=== PATIENT | male | born 1975 | race Caucasian/White ===

== ENCOUNTER 2022-09-03 17:38 | Inpatient (IN) | payer MEDICAID ==
[~2022-09-03] VITALS: Ht 175.3 cm; Wt 86.2 kg
[2022-09-03 19:01] LABS: HEMATOCRIT. 21.2 % (42.0-52.0); MEAN CORPUSCULAR HEMOGLOBIN 30.8 pg (28.0-32.0); MEAN CORPUSCULAR VOLUME 95.1 fL (80.0-94.0); MEAN PLATELET VOLUME 7.7 fl (7.4-10.4); PLATELET 248 x1000/uL (130-400); RED BLOOD CELL COUNT 2.23 mill/uL (4.7-6.1); RED CELL DISTRIBUTION WIDTH 15.7 % (11.6-14.6)
[2022-09-03 19:07] LABS: HEMOGLOBIN. 6.8 g/dL (14.0-18.0)
[2022-09-03 19:10] LABS: CHLORIDE 108 mEq/L (98-107)
[2022-09-03 19:26] LABS: ETHANOL BLOOD < 10 mg/dL
[2022-09-03] MEDS ORDERED: LACTULOSE 20G/30ML UDC PO ONE (19:30)
[2022-09-03 21:10] LABS: BG BASE EXCESS -25.6 mmol/L (-2.0-2.0); BG CARBOXYHEMOGLOBIN 0.3 % (0.5-1.5); BG DEOXYHEMOGLOBIN 2.5 % (0.0-5.0); BG FRACTION INSPIRED OXYGEN 21; BG HCO3 ACT 3.7 mmol/L (22.0-26.0); BG METHEMOGLOBIN 0.9 % (0.0-1.5); BG OXYGEN SATURATION 97.5 % (92.0-98.5); BG OXYHEMOGLOBIN 96.3 % (94.0-97.0); BG PCO2 15.7 mmHg (35.0-45.0); BG PH 6.994 (7.350-7.450); BG PO2 137.4 mmHg (75.0-100.0); BG SAMPLE SITE RIGHT RADIAL; BG TOTAL HEMOGLOBIN 7.5 g/dL (12.0-18.0); BG VENT MODE ROOM AIR
[2022-09-03] MEDS ORDERED: SODIUM BICARBONATE 8.4% 1 MEQ/ML 50ML SYR IV NR (21:15)
[2022-09-03 21:28] LABS: CLARITY URINE CLOUDY (CLEAR); COLOR URINE YELLOW (YELLOW); SPECIFIC GRAVITY URINE 1.015 (1.005-1.030)
[2022-09-03 21:29] LABS: KETONES URINE NEGATIVE (NEGATIVE); NITRITE URINE NEGATIVE (NEGATIVE); OCCULT BLOOD URINE 1+ (NEGATIVE); PROTEIN URINE 3+ (NEGATIVE); UROBILINOGEN URINE 0.2 E.U./dL (0.2-1.0)
[2022-09-03 21:30] LABS: LEUKOCYTE ESTERASE URINE TRACE (NEGATIVE)
[2022-09-03] MEDS ORDERED: LORAZEPAM 2MG/ML CPJ IV ONE (22:15)
[2022-09-03] MEDS ORDERED: MANNITOL 12.5G (25%) VIAL 50ML IV NR (22:30)
[2022-09-04] VITALS (72 sets, daily range): BP systolic 125–158; BP diastolic 56–98
[2022-09-04 03:07] LABS: NUCLEATED RED BLOOD CELLS 1 /100 WBC
[2022-09-04 03:08] LABS: PLATELET ESTIMATE NORMAL
[2022-09-04] MEDS ORDERED: ONDANSETRON HCL 4MG/2ML INJ IV PRN (03:15)
[2022-09-04 07:28] LABS: HEMATOCRIT. 22.8 % (42.0-52.0); HEMOGLOBIN. 7.4 g/dL (14.0-18.0); MEAN CORPUSCULAR HEMOGLOBIN 30.6 pg (28.0-32.0); MEAN CORPUSCULAR VOLUME 93.6 fL (80.0-94.0); MEAN PLATELET VOLUME 7.3 fl (7.4-10.4); PLATELET 228 x1000/uL (130-400); RED BLOOD CELL COUNT 2.43 mill/uL (4.7-6.1); RED CELL DISTRIBUTION WIDTH 16.3 % (11.6-14.6)
[2022-09-04 07:43] LABS: INR 1.6; PROTHROMBIN TIME 16.6 sec (9.6-11.0)
[2022-09-04] MEDS ORDERED: MANNITOL 12.5G (25%) VIAL 50ML IV NR (09:00)
[2022-09-04 09:36] LABS: PHOSPHORUS 12.7 mg/dL (2.5-4.9)
[2022-09-04] MEDS ORDERED: METOPROLOL SUCCINATE 50MG ER TABLET PO SCH (10:00)
[2022-09-04] MEDS ORDERED: METOPROLOL TARTRATE 50MG TABLET PO SCH (10:27)
[2022-09-04] MEDS ORDERED: DILTIAZEM HCL 5MG/ML 5ML VIAL IV NR (10:45)
[2022-09-04 11:03] LABS: BG BASE EXCESS -13.4 mmol/L (-2.0-2.0); BG CARBOXYHEMOGLOBIN 0.3 % (0.5-1.5); BG DEOXYHEMOGLOBIN 4.3 % (0.0-5.0); BG FRACTION INSPIRED OXYGEN 21; BG HCO3 ACT 11.8 mmol/L (22.0-26.0); BG METHEMOGLOBIN 0.5 % (0.0-1.5); BG OXYGEN SATURATION 95.7 % (92.0-98.5); BG OXYHEMOGLOBIN 94.9 % (94.0-97.0); BG PCO2 25.1 mmHg (35.0-45.0); BG PO2 88.9 mmHg (75.0-100.0); BG SAMPLE SITE RIGHT RADIAL; BG TOTAL HEMOGLOBIN 7.6 g/dL (12.0-18.0); BG VENT MODE ROOM AIR
[2022-09-04] MEDS ORDERED: SODIUM BICARBONATE 8.4% 1 MEQ/ML 50ML SYR IV NR ×2 (11:15→12:15)
[2022-09-04 11:39] LABS: MEAN CORPUSCULAR VOLUME 88.4 fL (80.0-94.0); MEAN PLATELET VOLUME 7.3 fl (7.4-10.4); PLATELET 211 x1000/uL (130-400); RED BLOOD CELL COUNT 2.29 mill/uL (4.7-6.1); RED CELL DISTRIBUTION WIDTH 15.8 % (11.6-14.6)
[2022-09-04 11:44] LABS: HEMATOCRIT. 20.2 % (42.0-52.0); HEMOGLOBIN. 6.9 g/dL (14.0-18.0)
[2022-09-04] MEDS ORDERED: DILTIAZEM HCL 30MG TABLET PO SCH (12:00)
[2022-09-04] MEDS: PROPOFOL 10MG/ML 100ML 100 ML IV PRN (12:30)
[2022-09-04 13:30] LABS: BG BASE EXCESS -11.6 mmol/L (-2.0-2.0); BG CARBOXYHEMOGLOBIN 0.3 % (0.5-1.5); BG DEOXYHEMOGLOBIN 0.7 % (0.0-5.0); BG FRACTION INSPIRED OXYGEN 100; BG HCO3 ACT 13.9 mmol/L (22.0-26.0); BG METHEMOGLOBIN 0.4 % (0.0-1.5); BG OXYGEN SATURATION 99.3 % (92.0-98.5); BG OXYHEMOGLOBIN 98.6 % (94.0-97.0); BG PCO2 29.5 mmHg (35.0-45.0); BG PH 7.291 (7.350-7.450); BG PO2 516.9 mmHg (75.0-100.0); BG SAMPLE SITE RIGHT RADIAL; BG TOTAL HEMOGLOBIN 7.5 g/dL (12.0-18.0); BG TOTAL RESPIRATORY RATE 20 b/min; BG VENT MODE VENT - AC
[2022-09-04 13:55] LABS: PLATELET ESTIMATE NORMAL
[2022-09-04] MEDS: LANTHANUM CARBONATE 500MG CHEW TABLET PO SCH ×2 (14:03→16:11)
[2022-09-04] MEDS: CITRIC ACID/SODIUM CITRATE SOLN 30ML UDC PO SCH ×2 (14:03→16:11)
[2022-09-04] MEDS: LACTULOSE 20G/30ML UDC PO SCH ×2 (14:03→21:06)
[2022-09-04] MEDS: DILTIAZEM HCL 5MG/ML 5ML VIAL IV SCH ×3 (14:05→20:52)
[2022-09-04] MEDS ORDERED: SODIUM BICARBONATE 8.4% 1 MEQ/ML 50ML SYR IV ONE (14:15)
[2022-09-04] MEDS ORDERED: POTASSIUM CHLORIDE 20MEQ/PACKET PO NR (20:00)
[2022-09-04] MEDS: EPOETIN ALFA-EPBX 4,000 UNIT/ML VIAL SUBCUT SCH (20:52)
[2022-09-04] MEDS: FAMOTIDINE 20MG TABLET PO SCH (20:52)
[2022-09-04 21:04] LABS: HEMATOCRIT 23.5 % (42.0-52.0); HEMOGLOBIN 8.1 g/dL (14.0-18.0)
[2022-09-04 21:15] LABS: INR 1.8; PROTHROMBIN TIME 18.2 sec (9.6-11.0)
[2022-09-05] VITALS (88 sets, daily range): BP systolic 120–165; BP diastolic 60–89
[2022-09-05] MEDS: PROPOFOL 10MG/ML 100ML 100 ML IV PRN ×3 (02:15→16:06)
[2022-09-05] MEDS: DILTIAZEM HCL 5MG/ML 5ML VIAL IV SCH ×6 (04:00→20:00)
[2022-09-05] MEDS: LACTULOSE 20G/30ML UDC PO SCH ×3 (05:31→22:24)
[2022-09-05 07:06] LABS: HEMOGLOBIN. 8.2 g/dL (14.0-18.0); MEAN CORPUSCULAR HEMOGLOBIN 30.9 pg (28.0-32.0); MEAN CORPUSCULAR VOLUME 89.8 fL (80.0-94.0); MEAN PLATELET VOLUME 7.5 fl (7.4-10.4); PLATELET 186 x1000/uL (130-400); RED BLOOD CELL COUNT 2.67 mill/uL (4.7-6.1); RED CELL DISTRIBUTION WIDTH 15.9 % (11.6-14.6)
[2022-09-05] MEDS ORDERED: MANNITOL 12.5G (25%) VIAL 50ML IV NR (08:00)
[2022-09-05] MEDS ORDERED: CEFEPIME HCL 1000MG/VIAL INJ IM SCH (09:00)
[2022-09-05] MEDS ORDERED: CEFEPIME 500 MG in DEXTROSE 5% WATER 50 ML IV SCH (09:00)
[2022-09-05] MEDS: LANTHANUM CARBONATE 500MG CHEW TABLET PO SCH ×3 (09:57→16:34)
[2022-09-05] MEDS: CITRIC ACID/SODIUM CITRATE SOLN 30ML UDC PO SCH ×3 (09:57→16:34)
[2022-09-05 10:41] LABS: BG BASE EXCESS -1.2 mmol/L (-2.0-2.0); BG CARBOXYHEMOGLOBIN 0.1 % (0.5-1.5); BG DEOXYHEMOGLOBIN 1.3 % (0.0-5.0); BG FRACTION INSPIRED OXYGEN 50; BG HCO3 ACT 21.7 mmol/L (22.0-26.0); BG METHEMOGLOBIN 0.3 % (0.0-1.5); BG OXYGEN SATURATION 98.7 % (92.0-98.5); BG OXYHEMOGLOBIN 98.3 % (94.0-97.0); BG PCO2 29.1 mmHg (35.0-45.0); BG PH 7.491 (7.350-7.450); BG PO2 196.7 mmHg (75.0-100.0); BG SAMPLE SITE RIGHT RADIAL; BG TOTAL HEMOGLOBIN 8.2 g/dL (12.0-18.0); BG TOTAL RESPIRATORY RATE 26 b/min; BG VENT MODE VENT - AC
[2022-09-05 10:49] LABS: PLATELET ESTIMATE NORMAL
[2022-09-05] MEDS: FAMOTIDINE 20MG TABLET PO SCH (22:24)
[2022-09-06] VITALS (48 sets, daily range): BP systolic 115–151; BP diastolic 58–101
[2022-09-06] MEDS: DILTIAZEM HCL 5MG/ML 5ML VIAL IV SCH ×6 (04:00→20:28)
[2022-09-06] MEDS: LACTULOSE 20G/30ML UDC PO SCH ×3 (05:12→22:14)
[2022-09-06 05:30] LABS: BASOPHILS % 0.3 % (0.0-2.0); EOSINOPHILS % 1.3 % (0.0-5.0); HEMATOCRIT. 24.2 % (42.0-52.0); HEMOGLOBIN. 8.3 g/dL (14.0-18.0); LYMPHOCYTES % 7.6 % (20.0-50.0); MEAN CORPUSCULAR HEMOGLOBIN 30.3 pg (28.0-32.0); MEAN CORPUSCULAR VOLUME 88.6 fL (80.0-94.0); MEAN PLATELET VOLUME 7.6 fl (7.4-10.4); MONOCYTES % 14.2 % (2.0-8.0); NEUTROPHILS % 76.6 % (40.0-76.0); PLATELET 181 x1000/uL (130-400); RED BLOOD CELL COUNT 2.73 mill/uL (4.7-6.1)
[2022-09-06] MEDS: PROPOFOL 10MG/ML 100ML 100 ML IV PRN ×2 (05:40→14:39)
[2022-09-06] MEDS ORDERED: POTASSIUM CHLORIDE 20MEQ TABLET SR PO NR (06:30)
[2022-09-06] MEDS ORDERED: POTASSIUM CHLORIDE INJ 40 MEQ in DEXT 5% WATER 250 ML IV ONE (07:15)
[2022-09-06] MEDS ORDERED: POTASSIUM CHLORIDE 20MEQ/PACKET PO NR (08:00)
[2022-09-06] MEDS: KCL 20MEQ/100ML X 2 FOR TOTAL KCL 40MEQ/200ML IV SCH ×2 (08:30→10:30)
[2022-09-06 09:00] LABS: BG BASE EXCESS -1.6 mmol/L (-2.0-2.0); BG CARBOXYHEMOGLOBIN 0.7 % (0.5-1.5); BG FRACTION INSPIRED OXYGEN 40; BG HCO3 ACT 21.2 mmol/L (22.0-26.0); BG METHEMOGLOBIN 0.4 % (0.0-1.5); BG OXYHEMOGLOBIN 97.9 % (94.0-97.0); BG PCO2 28.5 mmHg (35.0-45.0); BG PH 7.489 (7.350-7.450); BG PO2 148.7 mmHg (75.0-100.0); BG SAMPLE SITE RIGHT RADIAL; BG TOTAL HEMOGLOBIN 8.5 g/dL (12.0-18.0); BG VENT MODE VENT - AC
[2022-09-06] MEDS: CEFEPIME 1,000 MG in DEXTROSE 5% WATER 50 ML IV SCH (09:00)
[2022-09-06] MEDS: CITRIC ACID/SODIUM CITRATE SOLN 30ML UDC PO SCH ×3 (09:38→17:03)
[2022-09-06] MEDS: LANTHANUM CARBONATE 500MG CHEW TABLET PO SCH ×3 (09:40→17:03)
[2022-09-06] MEDS: EPOETIN ALFA-EPBX 4,000 UNIT/ML VIAL SUBCUT SCH (20:28)
[2022-09-06] MEDS: FAMOTIDINE 20MG TABLET PO SCH (20:28)
[2022-09-07] VITALS (90 sets, daily range): BP systolic 99–138; BP diastolic 69–96
[2022-09-07] MEDS ORDERED: PROPOFOL 10MG/ML 100ML 100 ML IV PRN (01:15)
[2022-09-07] MEDS: DILTIAZEM HCL 5MG/ML 5ML VIAL IV SCH ×6 (04:00→20:00)
[2022-09-07] MEDS: LACTULOSE 20G/30ML UDC PO SCH ×3 (06:34→21:34)
[2022-09-07] MEDS: LANTHANUM CARBONATE 500MG CHEW TABLET PO SCH ×3 (06:35→17:18)
[2022-09-07 06:48] LABS: HEMATOCRIT. 26.1 % (42.0-52.0); HEMOGLOBIN. 8.8 g/dL (14.0-18.0); RED BLOOD CELL COUNT 2.93 mill/uL (4.7-6.1); RED CELL DISTRIBUTION WIDTH 15.9 % (11.6-14.6)
[2022-09-07 07:13] LABS: PHOSPHORUS 4.4 mg/dL (2.5-4.9)
[2022-09-07] MEDS ORDERED: POTASSIUM CHLORIDE 20MEQ/PACKET PO NR (07:30)
[2022-09-07] MEDS: CITRIC ACID/SODIUM CITRATE SOLN 30ML UDC PO SCH ×3 (08:21→17:18)
[2022-09-07] MEDS: CEFEPIME 1,000 MG in DEXTROSE 5% WATER 50 ML IV SCH (08:23)
[2022-09-07] MEDS ORDERED: POTASSIUM CHLORIDE INJ 40 MEQ in DEXT 5% WATER 250 ML IV NR (09:00)
[2022-09-07 09:01] LABS: BG BASE EXCESS 0.6 mmol/L (-2.0-2.0); BG CARBOXYHEMOGLOBIN 1.4 % (0.5-1.5); BG DEOXYHEMOGLOBIN 1.1 % (0.0-5.0); BG FRACTION INSPIRED OXYGEN 40; BG HCO3 ACT 23.8 mmol/L (22.0-26.0); BG METHEMOGLOBIN 0.3 % (0.0-1.5); BG OXYGEN SATURATION 98.9 % (92.0-98.5); BG OXYHEMOGLOBIN 97.2 % (94.0-97.0); BG PCO2 32.5 mmHg (35.0-45.0); BG PH 7.483 (7.350-7.450); BG PO2 124.1 mmHg (75.0-100.0); BG SAMPLE SITE RIGHT RADIAL; BG TOTAL HEMOGLOBIN 8.9 g/dL (12.0-18.0); BG VENT MODE VENT - AC
[2022-09-07 09:47] LABS: NUCLEATED RED BLOOD CELLS 2 /100 WBC; PLATELET ESTIMATE NORMAL
[2022-09-07] MEDS ORDERED: FENTANYL 2500MCG/250ML PMX 250 ML IV ONE (11:00)
[2022-09-07] MEDS ORDERED: FENTANYL CITRATE 2,500 MCG in SODIUM CHLORIDE 0.9% 200 ML IV PRN (11:15)
[2022-09-07] MEDS: IPRATROPIUM/ALBUTEROL 0.5-3(2.5)MG/3ML NEB HHN SCH ×2 (12:43→20:24)
[2022-09-07] MEDS ORDERED: VANCOMYCIN 1.25GM PMX (XELLIA) 250 ML IV NR (14:00)
[2022-09-07] MEDS: FAMOTIDINE 20MG TABLET PO SCH (20:59)
[2022-09-08] VITALS (99 sets, daily range): BP systolic 116–154; BP diastolic 73–100
[2022-09-08] MEDS: IPRATROPIUM/ALBUTEROL 0.5-3(2.5)MG/3ML NEB HHN SCH ×3 (00:24→20:27)
[2022-09-08] MEDS: DILTIAZEM HCL 5MG/ML 5ML VIAL IV SCH ×6 (04:48→20:33)
[2022-09-08] MEDS: LACTULOSE 20G/30ML UDC PO SCH ×3 (05:30→22:27)
[2022-09-08 05:44] LABS: HEMATOCRIT. 27.2 % (42.0-52.0); HEMOGLOBIN. 9.1 g/dL (14.0-18.0); MEAN CORPUSCULAR HEMOGLOBIN 30.6 pg (28.0-32.0); MEAN CORPUSCULAR VOLUME 91.2 fL (80.0-94.0); MEAN PLATELET VOLUME 8.2 fl (7.4-10.4); PLATELET 173 x1000/uL (130-400); RED BLOOD CELL COUNT 2.98 mill/uL (4.7-6.1); RED CELL DISTRIBUTION WIDTH 15.9 % (11.6-14.6)
[2022-09-08] MEDS: LANTHANUM CARBONATE 500MG CHEW TABLET PO SCH ×3 (06:32→17:26)
[2022-09-08 06:38] LABS: NUCLEATED RED BLOOD CELLS 1 /100 WBC; PLATELET ESTIMATE NORMAL
[2022-09-08 06:41] LABS: PLATELET 173 x1000/uL (130-400)
[2022-09-08 06:42] LABS: MEAN PLATELET VOLUME 8.1 fl (7.4-10.4)
[2022-09-08 06:53] LABS: PHOSPHORUS 5.4 mg/dL (2.5-4.9)
[2022-09-08] MEDS: CEFEPIME 1,000 MG in DEXTROSE 5% WATER 50 ML IV SCH ×2 (07:53→11:05)
[2022-09-08] MEDS ORDERED: POTASSIUM CHLORIDE 20MEQ/PACKET PO NR (08:00)
[2022-09-08] MEDS: CITRIC ACID/SODIUM CITRATE SOLN 30ML UDC PO SCH ×2 (08:00→12:45)
[2022-09-08 11:01] LABS: BG BASE EXCESS 2.8 mmol/L (-2.0-2.0); BG CARBOXYHEMOGLOBIN 0.3 % (0.5-1.5); BG DEOXYHEMOGLOBIN 1.8 % (0.0-5.0); BG FRACTION INSPIRED OXYGEN 35; BG HCO3 ACT 25.8 mmol/L (22.0-26.0); BG METHEMOGLOBIN 0.3 % (0.0-1.5); BG OXYGEN SATURATION 98.2 % (92.0-98.5); BG OXYHEMOGLOBIN 97.6 % (94.0-97.0); BG PCO2 33.4 mmHg (35.0-45.0); BG PH 7.506 (7.350-7.450); BG PO2 131.1 mmHg (75.0-100.0); BG SAMPLE SITE RIGHT RADIAL; BG TOTAL HEMOGLOBIN 9.6 g/dL (12.0-18.0); BG VENT MODE VENT - AC
[2022-09-08 13:00] LABS: NUCLEATED RED BLOOD CELLS 1 /100 WBC
[2022-09-08 13:01] LABS: PLATELET ESTIMATE NORMAL
[2022-09-08 13:45] LABS: BG BASE EXCESS 1.3 mmol/L (-2.0-2.0); BG CARBOXYHEMOGLOBIN 0.3 % (0.5-1.5); BG DEOXYHEMOGLOBIN 2.3 % (0.0-5.0); BG FRACTION INSPIRED OXYGEN 35; BG OXYGEN SATURATION 97.7 % (92.0-98.5); BG OXYHEMOGLOBIN 97.4 % (94.0-97.0); BG PCO2 30.6 mmHg (35.0-45.0); BG PH 7.512 (7.350-7.450); BG PO2 104.2 mmHg (75.0-100.0); BG SAMPLE SITE RIGHT RADIAL; BG TOTAL HEMOGLOBIN 8.8 g/dL (12.0-18.0); BG VENT MODE VENT - CPAP
[2022-09-08] MEDS: FAMOTIDINE 20MG TABLET PO SCH (20:34)
[2022-09-08] MEDS: EPOETIN ALFA-EPBX 4,000 UNIT/ML VIAL SUBCUT SCH (20:34)
[2022-09-08] MEDS ORDERED: VANCOMYCIN 750MG PREMIX 150 ML IV NR (21:00)
[2022-09-09] VITALS (34 sets, daily range): BP systolic 124–152; BP diastolic 74–104
[2022-09-09] MEDS: DILTIAZEM HCL 5MG/ML 5ML VIAL IV SCH ×6 (00:15→21:15)
[2022-09-09] MEDS: IPRATROPIUM/ALBUTEROL 0.5-3(2.5)MG/3ML NEB HHN SCH ×4 (02:24→20:47)
[2022-09-09 04:20] LABS: HEMATOCRIT. 23.6 % (42.0-52.0); HEMOGLOBIN. 8.1 g/dL (14.0-18.0); MEAN CORPUSCULAR HEMOGLOBIN 30.7 pg (28.0-32.0); MEAN PLATELET VOLUME 8.3 fl (7.4-10.4); PLATELET 171 x1000/uL (130-400); RED BLOOD CELL COUNT 2.63 mill/uL (4.7-6.1); RED CELL DISTRIBUTION WIDTH 15.7 % (11.6-14.6)
[2022-09-09 04:36] LABS: PHOSPHORUS 4.2 mg/dL (2.5-4.9)
[2022-09-09] MEDS: LACTULOSE 20G/30ML UDC PO SCH ×3 (06:00→21:15)
[2022-09-09] MEDS: LANTHANUM CARBONATE 500MG CHEW TABLET PO SCH ×3 (06:08→18:46)
[2022-09-09] MEDS ORDERED: POTASSIUM CHLORIDE 20MEQ/PACKET PO NR (07:15)
[2022-09-09 07:35] LABS: BG BASE EXCESS 3.7 mmol/L (-2.0-2.0); BG CARBOXYHEMOGLOBIN 0.7 % (0.5-1.5); BG DEOXYHEMOGLOBIN 4.5 % (0.0-5.0); BG HCO3 ACT 27.4 mmol/L (22.0-26.0); BG OXYGEN SATURATION 95.5 % (92.0-98.5); BG OXYHEMOGLOBIN 94.8 % (94.0-97.0); BG PCO2 37.7 mmHg (35.0-45.0); BG PH 7.479 (7.350-7.450); BG PO2 73.5 mmHg (75.0-100.0); BG SAMPLE SITE RIGHT RADIAL; BG TOTAL HEMOGLOBIN 8.8 g/dL (12.0-18.0); BG VENT MODE ROOM AIR
[2022-09-09] MEDS: CEFEPIME 1,000 MG in DEXTROSE 5% WATER 50 ML IV SCH (08:26)
[2022-09-09 09:33] LABS: PLATELET ESTIMATE NORMAL
[2022-09-09] MEDS: CEFAZOLIN 1000MG PREMIX 50 ML IV SCH (21:14)
[2022-09-09] MEDS: FAMOTIDINE 20MG TABLET PO SCH (21:15)
[2022-09-10] VITALS (24 sets, daily range): BP systolic 125–154; BP diastolic 73–103
[2022-09-10] MEDS: IPRATROPIUM/ALBUTEROL 0.5-3(2.5)MG/3ML NEB HHN SCH ×4 (00:32→20:26)
[2022-09-10] MEDS: DILTIAZEM HCL 5MG/ML 5ML VIAL IV SCH ×6 (00:36→20:38)
[2022-09-10] MEDS: LACTULOSE 20G/30ML UDC PO SCH ×3 (05:06→20:38)
[2022-09-10 06:06] LABS: HEMATOCRIT. 25.9 % (42.0-52.0); HEMOGLOBIN. 8.5 g/dL (14.0-18.0); MEAN CORPUSCULAR HEMOGLOBIN 30.4 pg (28.0-32.0); MEAN CORPUSCULAR VOLUME 92.7 fL (80.0-94.0); MEAN PLATELET VOLUME 8.2 fl (7.4-10.4); PLATELET 163 x1000/uL (130-400); RED CELL DISTRIBUTION WIDTH 15.7 % (11.6-14.6)
[2022-09-10 10:26] LABS: PLATELET ESTIMATE NORMAL
[2022-09-10] MEDS: LANTHANUM CARBONATE 500MG CHEW TABLET PO SCH ×2 (13:50→17:08)
[2022-09-10] MEDS: CEFAZOLIN 1000MG PREMIX 50 ML IV SCH (18:14)
[2022-09-10] MEDS: FAMOTIDINE 20MG TABLET PO SCH (20:38)
[2022-09-11] VITALS (12 sets, daily range): BP systolic 133–156; BP diastolic 80–105
[2022-09-11] MEDS: DILTIAZEM HCL 5MG/ML 5ML VIAL IV SCH ×6 (00:24→21:07)
[2022-09-11] MEDS: IPRATROPIUM/ALBUTEROL 0.5-3(2.5)MG/3ML NEB HHN SCH ×4 (01:11→21:17)
[2022-09-11] MEDS: LACTULOSE 20G/30ML UDC PO SCH ×3 (04:20→21:07)
[2022-09-11 06:09] LABS: HEMATOCRIT. 26.6 % (42.0-52.0); HEMOGLOBIN. 8.7 g/dL (14.0-18.0); MEAN CORPUSCULAR VOLUME 92.1 fL (80.0-94.0); MEAN PLATELET VOLUME 9.1 fl (7.4-10.4); PLATELET 193 x1000/uL (130-400); RED BLOOD CELL COUNT 2.89 mill/uL (4.7-6.1); RED CELL DISTRIBUTION WIDTH 15.5 % (11.6-14.6)
[2022-09-11] MEDS: LANTHANUM CARBONATE 500MG CHEW TABLET PO SCH ×3 (09:07→18:27)
[2022-09-11 11:10] LABS: PLATELET ESTIMATE NORMAL
[2022-09-11] MEDS: CEFAZOLIN 1000MG PREMIX 50 ML IV SCH (21:05)
[2022-09-11] MEDS: FAMOTIDINE 20MG TABLET PO SCH (21:07)
[2022-09-12] VITALS (22 sets, daily range): BP systolic 123–145; BP diastolic 75–98
[2022-09-12] MEDS: DILTIAZEM HCL 5MG/ML 5ML VIAL IV SCH ×6 (00:58→21:03)
[2022-09-12] MEDS: IPRATROPIUM/ALBUTEROL 0.5-3(2.5)MG/3ML NEB HHN SCH ×4 (01:45→21:26)
[2022-09-12 05:53] LABS: HEMATOCRIT. 27.4 % (42.0-52.0); HEMOGLOBIN. 8.9 g/dL (14.0-18.0); MEAN CORPUSCULAR HEMOGLOBIN 30.3 pg (28.0-32.0); MEAN CORPUSCULAR VOLUME 92.7 fL (80.0-94.0); MEAN PLATELET VOLUME 9.1 fl (7.4-10.4); PLATELET 214 x1000/uL (130-400); RED BLOOD CELL COUNT 2.96 mill/uL (4.7-6.1); RED CELL DISTRIBUTION WIDTH 15.1 % (11.6-14.6)
[2022-09-12] MEDS: LACTULOSE 20G/30ML UDC PO SCH ×3 (06:06→21:03)
[2022-09-12] MEDS: LANTHANUM CARBONATE 500MG CHEW TABLET PO SCH ×3 (08:00→18:00)
[2022-09-12 10:52] LABS: INR 1.2
[2022-09-12 18:52] LABS: PLATELET ESTIMATE NORMAL
[2022-09-12] MEDS: CEFAZOLIN 1000MG PREMIX 50 ML IV SCH (21:02)
[2022-09-12] MEDS: FAMOTIDINE 20MG TABLET PO SCH (21:03)
[2022-09-13] VITALS: BP 155/92
[2022-09-13] MEDS: IPRATROPIUM/ALBUTEROL 0.5-3(2.5)MG/3ML NEB HHN SCH ×4 (01:07→20:30)
[2022-09-13] MEDS: DILTIAZEM HCL 5MG/ML 5ML VIAL IV SCH ×6 (01:30→20:00)
[2022-09-13 04:00] VITALS: BP 156/103
[2022-09-13] MEDS: LACTULOSE 20G/30ML UDC PO SCH ×3 (05:16→22:40)
[2022-09-13 06:58] LABS: EOSINOPHILS % 6.9 % (0.0-5.0); HEMATOCRIT. 29.6 % (42.0-52.0); HEMOGLOBIN. 9.7 g/dL (14.0-18.0); LYMPHOCYTES % 8.2 % (20.0-50.0); MEAN CORPUSCULAR HEMOGLOBIN 30.7 pg (28.0-32.0); MEAN CORPUSCULAR VOLUME 93.2 fL (80.0-94.0); MEAN PLATELET VOLUME 8.9 fl (7.4-10.4); MONOCYTES % 12.7 % (2.0-8.0); NEUTROPHILS % 71.2 % (40.0-76.0); PLATELET 271 x1000/uL (130-400); RED BLOOD CELL COUNT 3.18 mill/uL (4.7-6.1); RED CELL DISTRIBUTION WIDTH 14.9 % (11.6-14.6)
[2022-09-13 08:00] VITALS: BP 113/92
[2022-09-13] MEDS: ASPIRIN 81MG TABLET PO SCH (08:22)
[2022-09-13] MEDS: LANTHANUM CARBONATE 500MG CHEW TABLET PO SCH ×3 (08:23→18:10)
[2022-09-13 12:00] VITALS: BP 141/93
[2022-09-13 16:00] VITALS: BP 111/75
[2022-09-13 20:00] VITALS: BP 143/92
[2022-09-13] MEDS: FAMOTIDINE 20MG TABLET PO SCH (22:40)
[2022-09-13] MEDS: CEFAZOLIN 1000MG PREMIX 50 ML IV SCH (22:40)
[2022-09-14] VITALS (10 sets, daily range): BP systolic 112–162; BP diastolic 70–101
[2022-09-14] MEDS: DILTIAZEM HCL 5MG/ML 5ML VIAL IV SCH ×6 (04:00→21:34)
[2022-09-14] MEDS: LACTULOSE 20G/30ML UDC PO SCH ×3 (06:00→21:33)
[2022-09-14 08:19] LABS: BASOPHILS % 1.1 % (0.0-2.0); EOSINOPHILS % 7.2 % (0.0-5.0); HEMATOCRIT. 28.8 % (42.0-52.0); HEMOGLOBIN. 9.7 g/dL (14.0-18.0); LYMPHOCYTES % 11.7 % (20.0-50.0); MEAN CORPUSCULAR VOLUME 92.4 fL (80.0-94.0); MEAN PLATELET VOLUME 8.6 fl (7.4-10.4); MONOCYTES % 11.6 % (2.0-8.0); NEUTROPHILS % 68.4 % (40.0-76.0); PLATELET 308 x1000/uL (130-400); RED BLOOD CELL COUNT 3.12 mill/uL (4.7-6.1); RED CELL DISTRIBUTION WIDTH 14.7 % (11.6-14.6)
[2022-09-14] MEDS: IPRATROPIUM/ALBUTEROL 0.5-3(2.5)MG/3ML NEB HHN SCH ×3 (08:25→21:40)
[2022-09-14] MEDS: LANTHANUM CARBONATE 500MG CHEW TABLET PO SCH ×3 (09:35→18:27)
[2022-09-14] MEDS: ASPIRIN 81MG TABLET PO SCH (09:39)
[2022-09-14] MEDS: CEFAZOLIN 1000MG PREMIX 50 ML IV SCH (19:37)
[2022-09-14] MEDS: FAMOTIDINE 20MG TABLET PO SCH (21:33)
[2022-09-15] VITALS (8 sets, daily range): BP systolic 142–156; BP diastolic 69–101
[2022-09-15] MEDS: DILTIAZEM HCL 5MG/ML 5ML VIAL IV SCH ×7 (00:39→23:49)
[2022-09-15] MEDS: IPRATROPIUM/ALBUTEROL 0.5-3(2.5)MG/3ML NEB HHN SCH ×4 (00:47→21:40)
[2022-09-15] MEDS: LACTULOSE 20G/30ML UDC PO SCH ×3 (05:10→21:00)
[2022-09-15] MEDS: ASPIRIN 81MG TABLET PO SCH (09:08)
[2022-09-15] MEDS: LANTHANUM CARBONATE 500MG CHEW TABLET PO SCH ×3 (09:09→17:56)
[2022-09-15] MEDS: FOLIC ACID/VITAMIN B COMP W-C TABLET PO SCH (09:10)
[2022-09-15] MEDS: CARVEDILOL 3.125 MG TABLET PO SCH ×2 (13:33→20:54)
[2022-09-15] MEDS: CEFAZOLIN 1000MG PREMIX 50 ML IV SCH (18:03)
[2022-09-15] MEDS: FAMOTIDINE 20MG TABLET PO SCH (20:54)
[2022-09-16] VITALS (9 sets, daily range): BP systolic 119–156; BP diastolic 70–100
[2022-09-16] MEDS: IPRATROPIUM/ALBUTEROL 0.5-3(2.5)MG/3ML NEB HHN SCH ×3 (01:55→15:38)
[2022-09-16] MEDS: DILTIAZEM HCL 5MG/ML 5ML VIAL IV SCH ×6 (04:29→23:51)
[2022-09-16] MEDS: LACTULOSE 20G/30ML UDC PO SCH ×4 (06:00→22:00)
[2022-09-16 06:32] LABS: BASOPHILS % 1.3 % (0.0-2.0); EOSINOPHILS % 6.6 % (0.0-5.0); HEMATOCRIT. 29.1 % (42.0-52.0); HEMOGLOBIN. 9.7 g/dL (14.0-18.0); LYMPHOCYTES % 10.7 % (20.0-50.0); MEAN CORPUSCULAR HEMOGLOBIN 31.1 pg (28.0-32.0); MEAN CORPUSCULAR VOLUME 93.1 fL (80.0-94.0); MEAN PLATELET VOLUME 8.7 fl (7.4-10.4); MONOCYTES % 9.4 % (2.0-8.0); PLATELET 355 x1000/uL (130-400); RED BLOOD CELL COUNT 3.12 mill/uL (4.7-6.1); RED CELL DISTRIBUTION WIDTH 14.7 % (11.6-14.6)
[2022-09-16] MEDS: LANTHANUM CARBONATE 500MG CHEW TABLET PO SCH ×3 (08:34→17:27)
[2022-09-16] MEDS: ASPIRIN 81MG TABLET PO SCH (08:34)
[2022-09-16] MEDS: FOLIC ACID/VITAMIN B COMP W-C TABLET PO SCH (08:36)
[2022-09-16] MEDS: CARVEDILOL 3.125 MG TABLET PO SCH ×3 (09:00→20:53)
[2022-09-16] MEDS: CEFAZOLIN 1000MG PREMIX 50 ML IV SCH (17:27)
[2022-09-16] MEDS ORDERED: ACETAMINOPHEN 650MG SUPP PR PRN (20:15)
[2022-09-16] MEDS: FAMOTIDINE 20MG TABLET PO SCH ×2 (20:49→20:53)
[2022-09-17 04:13] VITALS: BP 143/94
[2022-09-17] MEDS: DILTIAZEM HCL 5MG/ML 5ML VIAL IV SCH ×5 (04:22→21:48)
[2022-09-17] MEDS: LACTULOSE 20G/30ML UDC PO SCH ×4 (06:00→21:48)
[2022-09-17 07:32] LABS: BASOPHILS % 1.7 % (0.0-2.0); HEMATOCRIT. 27.7 % (42.0-52.0); HEMOGLOBIN. 9.3 g/dL (14.0-18.0); LYMPHOCYTES % 13.8 % (20.0-50.0); MEAN CORPUSCULAR HEMOGLOBIN 31.4 pg (28.0-32.0); MEAN CORPUSCULAR VOLUME 93.7 fL (80.0-94.0); MEAN PLATELET VOLUME 8.6 fl (7.4-10.4); MONOCYTES % 10.4 % (2.0-8.0); NEUTROPHILS % 68.1 % (40.0-76.0); PLATELET 349 x1000/uL (130-400); RED BLOOD CELL COUNT 2.96 mill/uL (4.7-6.1); RED CELL DISTRIBUTION WIDTH 14.7 % (11.6-14.6)
[2022-09-17] MEDS: IPRATROPIUM/ALBUTEROL 0.5-3(2.5)MG/3ML NEB HHN SCH ×3 (07:48→20:40)
[2022-09-17 08:00] VITALS: BP 159/96
[2022-09-17] MEDS: FOLIC ACID/VITAMIN B COMP W-C TABLET PO SCH (08:57)
[2022-09-17] MEDS: ASPIRIN 81MG TABLET PO SCH (08:57)
[2022-09-17] MEDS: LANTHANUM CARBONATE 500MG CHEW TABLET PO SCH ×3 (08:58→17:13)
[2022-09-17] MEDS: CARVEDILOL 3.125 MG TABLET PO SCH (09:20)
[2022-09-17 12:00] VITALS: BP 165/101
[2022-09-17] MEDS: LOSARTAN POTASSIUM 50 MG TABLET PO SCH (12:11)
[2022-09-17 16:00] VITALS: BP 156/94
[2022-09-17 20:00] VITALS: BP 153/99
[2022-09-17] MEDS: ATORVASTATIN CALCIUM 20MG TABLET PO SCH (21:46)
[2022-09-17] MEDS: CEFAZOLIN 1000MG PREMIX 50 ML IV SCH (21:46)
[2022-09-17] MEDS: CARVEDILOL 6.25 MG TABLET PO SCH (21:47)
[2022-09-17] MEDS: FAMOTIDINE 20MG TABLET PO SCH (21:47)
[2022-09-18] VITALS: BP 142/87
[2022-09-18] MEDS: DILTIAZEM HCL 5MG/ML 5ML VIAL IV SCH ×4 (00:04→20:59)
[2022-09-18] MEDS: IPRATROPIUM/ALBUTEROL 0.5-3(2.5)MG/3ML NEB HHN SCH ×4 (01:07→21:42)
[2022-09-18 04:00] VITALS: BP 134/91
[2022-09-18 05:41] LABS: BASOPHILS % 1.3 % (0.0-2.0); EOSINOPHILS % 6.4 % (0.0-5.0); HEMATOCRIT. 29.4 % (42.0-52.0); HEMOGLOBIN. 9.9 g/dL (14.0-18.0); LYMPHOCYTES % 13.6 % (20.0-50.0); MEAN CORPUSCULAR HEMOGLOBIN 31.5 pg (28.0-32.0); MEAN CORPUSCULAR VOLUME 93.9 fL (80.0-94.0); MEAN PLATELET VOLUME 8.4 fl (7.4-10.4); MONOCYTES % 9.6 % (2.0-8.0); NEUTROPHILS % 69.1 % (40.0-76.0); PLATELET 361 x1000/uL (130-400); RED BLOOD CELL COUNT 3.13 mill/uL (4.7-6.1); RED CELL DISTRIBUTION WIDTH 14.6 % (11.6-14.6)
[2022-09-18] MEDS: LACTULOSE 20G/30ML UDC PO SCH ×3 (05:51→20:58)
[2022-09-18 08:00] VITALS: BP 160/100
[2022-09-18] MEDS: LOSARTAN POTASSIUM 50 MG TABLET PO SCH (10:00)
[2022-09-18] MEDS: ASPIRIN 81MG TABLET PO SCH (10:00)
[2022-09-18] MEDS: CARVEDILOL 6.25 MG TABLET PO SCH ×2 (10:00→20:57)
[2022-09-18] MEDS: LANTHANUM CARBONATE 500MG CHEW TABLET PO SCH ×3 (10:00→18:30)
[2022-09-18] MEDS: FOLIC ACID/VITAMIN B COMP W-C TABLET PO SCH (10:00)
[2022-09-18 12:00] VITALS: BP 148/79
[2022-09-18 16:00] VITALS: BP 137/86
[2022-09-18 20:00] VITALS: BP 112/74
[2022-09-18] MEDS: CEFAZOLIN 1000MG PREMIX 50 ML IV SCH (20:57)
[2022-09-18] MEDS: ATORVASTATIN CALCIUM 20MG TABLET PO SCH (20:57)
[2022-09-18] MEDS: FAMOTIDINE 20MG TABLET PO SCH (20:57)
[2022-09-19] VITALS (13 sets, daily range): BP systolic 93–155; BP diastolic 42–100
[2022-09-19] MEDS: DILTIAZEM HCL 5MG/ML 5ML VIAL IV SCH ×6 (00:27→20:40)
[2022-09-19] MEDS: IPRATROPIUM/ALBUTEROL 0.5-3(2.5)MG/3ML NEB HHN SCH ×3 (03:00→21:41)
[2022-09-19] MEDS: LACTULOSE 20G/30ML UDC PO SCH ×3 (06:06→20:39)
[2022-09-19 08:20] LABS: BASOPHILS % 1.5 % (0.0-2.0); EOSINOPHILS % 7.3 % (0.0-5.0); HEMATOCRIT. 29.3 % (42.0-52.0); HEMOGLOBIN. 9.7 g/dL (14.0-18.0); LYMPHOCYTES % 14.3 % (20.0-50.0); MEAN CORPUSCULAR HEMOGLOBIN 31.1 pg (28.0-32.0); MEAN CORPUSCULAR VOLUME 93.7 fL (80.0-94.0); MEAN PLATELET VOLUME 8.5 fl (7.4-10.4); MONOCYTES % 9.2 % (2.0-8.0); NEUTROPHILS % 67.7 % (40.0-76.0); PLATELET 351 x1000/uL (130-400); RED BLOOD CELL COUNT 3.13 mill/uL (4.7-6.1); RED CELL DISTRIBUTION WIDTH 14.8 % (11.6-14.6)
[2022-09-19] MEDS: LOSARTAN POTASSIUM 50 MG TABLET PO SCH (08:35)
[2022-09-19] MEDS: LANTHANUM CARBONATE 500MG CHEW TABLET PO SCH ×3 (08:35→18:38)
[2022-09-19] MEDS: FOLIC ACID/VITAMIN B COMP W-C TABLET PO SCH (08:35)
[2022-09-19] MEDS: ASPIRIN 81MG TABLET PO SCH (08:35)
[2022-09-19] MEDS: CARVEDILOL 6.25 MG TABLET PO SCH ×2 (08:37→20:39)
[2022-09-19 16:57] LABS: INR 1.5; PROTHROMBIN TIME 15.6 sec (9.6-11.0)
[2022-09-19] MEDS: CEFAZOLIN 1000MG PREMIX 50 ML IV SCH (20:38)
[2022-09-19] MEDS: ATORVASTATIN CALCIUM 20MG TABLET PO SCH (20:39)
[2022-09-19] MEDS: FAMOTIDINE 20MG TABLET PO SCH (20:39)
[2022-09-20] VITALS: BP_SYST 142; BP_SYST 97; BP_DIAS 59; BP_DIAS 89
[2022-09-20] MEDS: IPRATROPIUM/ALBUTEROL 0.5-3(2.5)MG/3ML NEB HHN SCH ×4 (01:13→21:21)
[2022-09-20] MEDS: DILTIAZEM HCL 5MG/ML 5ML VIAL IV SCH ×6 (01:18→20:43)
[2022-09-20 04:00] VITALS: BP 113/72
[2022-09-20] MEDS: LACTULOSE 20G/30ML UDC PO SCH ×3 (05:31→22:00)
[2022-09-20 08:00] VITALS: BP 153/95
[2022-09-20] MEDS: LOSARTAN POTASSIUM 50 MG TABLET PO SCH (08:54)
[2022-09-20] MEDS: LANTHANUM CARBONATE 500MG CHEW TABLET PO SCH ×3 (08:55→17:31)
[2022-09-20] MEDS: ASPIRIN 81MG TABLET PO SCH (08:55)
[2022-09-20] MEDS: CARVEDILOL 6.25 MG TABLET PO SCH (08:55)
[2022-09-20] MEDS: FOLIC ACID/VITAMIN B COMP W-C TABLET PO SCH (08:56)
[2022-09-20 12:00] VITALS: BP 111/53
[2022-09-20 16:00] VITALS: BP 137/90
[2022-09-20 20:00] VITALS: BP 124/88
[2022-09-20] MEDS: CEFAZOLIN 1000MG PREMIX 50 ML IV SCH (20:43)
[2022-09-20] MEDS: CARVEDILOL 12.5MG TABLET PO SCH (21:00)
[2022-09-20] MEDS: ATORVASTATIN CALCIUM 20MG TABLET PO SCH (21:00)
[2022-09-20] MEDS: FAMOTIDINE 20MG TABLET PO SCH (21:00)
[2022-09-21] VITALS (19 sets, daily range): BP systolic 119–144; BP diastolic 70–94
[2022-09-21] MEDS: IPRATROPIUM/ALBUTEROL 0.5-3(2.5)MG/3ML NEB HHN SCH ×4 (01:07→20:57)
[2022-09-21] MEDS: DILTIAZEM HCL 5MG/ML 5ML VIAL IV SCH ×6 (01:35→20:35)
[2022-09-21] MEDS: LACTULOSE 20G/30ML UDC PO SCH ×3 (05:07→21:42)
[2022-09-21 06:41] LABS: BASOPHILS % 1.1 % (0.0-2.0); EOSINOPHILS % 6.5 % (0.0-5.0); HEMATOCRIT. 28.8 % (42.0-52.0); HEMOGLOBIN. 9.6 g/dL (14.0-18.0); LYMPHOCYTES % 14.4 % (20.0-50.0); MEAN CORPUSCULAR HEMOGLOBIN 31.3 pg (28.0-32.0); MEAN CORPUSCULAR VOLUME 93.5 fL (80.0-94.0); PLATELET 321 x1000/uL (130-400); RED BLOOD CELL COUNT 3.08 mill/uL (4.7-6.1); RED CELL DISTRIBUTION WIDTH 14.7 % (11.6-14.6)
[2022-09-21] MEDS ORDERED: LIDOCAINE HCL 1% 10 MG/ML 10ML VIAL ONE ×2 (07:02→07:46)
[2022-09-21] MEDS ORDERED: FENTANYL CITRATE/PF 50MCG/ML 2ML VIAL ONE (07:03)
[2022-09-21] MEDS: LANTHANUM CARBONATE 500MG CHEW TABLET PO SCH ×3 (08:10→17:48)
[2022-09-21] MEDS: FOLIC ACID/VITAMIN B COMP W-C TABLET PO SCH (10:06)
[2022-09-21] MEDS: ASPIRIN 81MG TABLET PO SCH (10:06)
[2022-09-21] MEDS: CARVEDILOL 12.5MG TABLET PO SCH ×2 (10:07→21:42)
[2022-09-21] MEDS: LOSARTAN POTASSIUM 50 MG TABLET PO SCH (10:07)
[2022-09-21] MEDS: CEFAZOLIN 1000MG PREMIX 50 ML IV SCH (20:35)
[2022-09-21] MEDS: FAMOTIDINE 20MG TABLET PO SCH (21:42)
[2022-09-21] MEDS: ATORVASTATIN CALCIUM 20MG TABLET PO SCH (21:42)
[2022-09-22] VITALS (9 sets, daily range): BP systolic 98–139; BP diastolic 62–93
[2022-09-22] MEDS: IPRATROPIUM/ALBUTEROL 0.5-3(2.5)MG/3ML NEB HHN SCH ×4 (01:04→21:08)
[2022-09-22] MEDS: DILTIAZEM HCL 5MG/ML 5ML VIAL IV SCH ×6 (04:00→20:46)
[2022-09-22] MEDS: LACTULOSE 20G/30ML UDC PO SCH ×2 (05:00→13:38)
[2022-09-22] MEDS: FOLIC ACID/VITAMIN B COMP W-C TABLET PO SCH (09:00)
[2022-09-22] MEDS: LANTHANUM CARBONATE 500MG CHEW TABLET PO SCH ×3 (09:02→18:01)
[2022-09-22] MEDS: CARVEDILOL 12.5MG TABLET PO SCH ×2 (09:03→20:45)
[2022-09-22] MEDS: LOSARTAN POTASSIUM 50 MG TABLET PO SCH (09:03)
[2022-09-22] MEDS: ASPIRIN 81MG TABLET PO SCH (09:05)
[2022-09-22] MEDS: CEFAZOLIN 1000MG PREMIX 50 ML IV SCH (18:01)
[2022-09-22] MEDS ORDERED: ASPI-1160 PO (19:25)
[2022-09-22] MEDS ORDERED: ATOR20TA PO (19:25)
[2022-09-22] MEDS ORDERED: LOSA50TA3 PO (19:25)
[2022-09-22] MEDS ORDERED: COR12 PO (19:25)
[2022-09-22] MEDS ORDERED: ENOXAPARIN 30MG/0.3ML SYR SUBCUT SCH (21:00)
== END 2022-09-22 21:17 | disposition home or self-care (01) | DRG 720 ==
LOC: ER 17:38 → 5EST 23:50 → EDBEDREQSVC 09-04 00:08 → EDBEDREQDT 09-04 00:08 → EDBEDREQ 09-04 00:08 → EDBEDREQTM 09-04 00:08 → ENRESERV 09-04 02:30 → MICUNO 09-04 12:17 → 6EST 09-06 10:03 → MICUNO 09-06 10:05 → 5EST 09-09 17:00 → 7WST 09-12 19:05
PROVIDERS: ADMIT Internal Medicine; ATTEND Internal Medicine
PROC: B543ZZA Ultrasonography of Right Jugular Veins, Guidance (ICD-10-PCS; 2022-09-03)
PROC: 30233N1 Transfusion of Nonautologous Red Blood Cells into Peripheral Vein, Percutaneous Approach (ICD-10-PCS; 2022-09-03)
PROC: 5A1955Z Respiratory Ventilation, Greater than 96 Consecutive Hours (ICD-10-PCS; principal; 2022-09-04)
PROC: 0BH17EZ Insertion of Endotracheal Airway into Trachea, Via Natural or Artificial Opening (ICD-10-PCS; 2022-09-04)
PROC: 02HV33Z Insertion of Infusion Device into Superior Vena Cava, Percutaneous Approach (ICD-10-PCS; 2022-09-04)
PROC: 5A1D70Z Performance of Urinary Filtration, Intermittent, Less than 6 Hours Per Day (ICD-10-PCS; 2022-09-04)
PROC: B548ZZA Ultrasonography of Superior Vena Cava, Guidance (ICD-10-PCS; 2022-09-04)
PROC: 5A1D70Z Performance of Urinary Filtration, Intermittent, Less than 6 Hours Per Day (ICD-10-PCS; 2022-09-05)
PROC: 5A1D70Z Performance of Urinary Filtration, Intermittent, Less than 6 Hours Per Day (ICD-10-PCS; 2022-09-06)
PROC: 0JH63XZ Insertion of Tunneled Vascular Access Device into Chest Subcutaneous Tissue and Fascia, Percutaneous Approach (ICD-10-PCS; 2022-09-07)
PROC: 02H633Z Insertion of Infusion Device into Right Atrium, Percutaneous Approach (ICD-10-PCS; 2022-09-07)
PROC: B518YZA Fluoroscopy of Superior Vena Cava using Other Contrast, Guidance (ICD-10-PCS; 2022-09-07)
PROC: 5A1D70Z Performance of Urinary Filtration, Intermittent, Less than 6 Hours Per Day (ICD-10-PCS; 2022-09-08)
PROC: 5A1D70Z Performance of Urinary Filtration, Intermittent, Less than 6 Hours Per Day (ICD-10-PCS; 2022-09-10)
PROC: 5A1D70Z Performance of Urinary Filtration, Intermittent, Less than 6 Hours Per Day (ICD-10-PCS; 2022-09-12)
PROC: 5A1D70Z Performance of Urinary Filtration, Intermittent, Less than 6 Hours Per Day (ICD-10-PCS; 2022-09-14)
PROC: 5A1D70Z Performance of Urinary Filtration, Intermittent, Less than 6 Hours Per Day (ICD-10-PCS; 2022-09-16)
PROC: 5A1D70Z Performance of Urinary Filtration, Intermittent, Less than 6 Hours Per Day (ICD-10-PCS; 2022-09-19)
PROC: 5A1D70Z Performance of Urinary Filtration, Intermittent, Less than 6 Hours Per Day (ICD-10-PCS; 2022-09-21)
PROC: 5A1D70Z Performance of Urinary Filtration, Intermittent, Less than 6 Hours Per Day (ICD-10-PCS; 2022-09-22)
DX: A41.01 Sepsis due to Methicillin susceptible Staphylococcus aureus (principal); I63.9 Cerebral infarction, unspecified; J96.01 Acute respiratory failure with hypoxia; G93.41 Metabolic encephalopathy; E72.20 Disorder of urea cycle metabolism, unspecified; N17.9 Acute kidney failure, unspecified; I12.0 Hypertensive chronic kidney disease with stage 5 chronic kidney disease or end stage renal disease; N18.6 End stage renal disease; D63.1 Anemia in chronic kidney disease; I42.9 Cardiomyopathy, unspecified; E87.20 Acidosis, unspecified; R65.20 Severe sepsis without septic shock; E11.22 Type 2 diabetes mellitus with diabetic chronic kidney disease; G81.91 Hemiplegia, unspecified affecting right dominant side; E11.51 Type 2 diabetes mellitus with diabetic peripheral angiopathy without gangrene; Z20.822 Contact with and (suspected) exposure to COVID-19; G93.0 Cerebral cysts; R13.10 Dysphagia, unspecified; E87.6 Hypokalemia; I47.1 Supraventricular tachycardia; E83.39 Other disorders of phosphorus metabolism; Z86.73 Personal history of transient ischemic attack (TIA), and cerebral infarction without residual deficits; Z89.511 Acquired absence of right leg below knee; Z91.15 Patient's noncompliance with renal dialysis; Z99.2 Dependence on renal dialysis
CPT/HCPCS: 31500; 36415; 36558; 36589; 36600; 70551; 71045; 74176; 76937; 77001; 80048; 80053; 80061; 80202; 80320; 81003; 82140; 82375; 82805; 82962; 83036; 83540; 83550; 83605; 83735; 83880; 84100; 84132; 84145; 84443; 84478; 84484; 85014; 85018; 85025; 85049; 85384; 86705; 86706; 86803; 86850; 86900; 86920; 87077; 87186; 87340; 87426; 90935; 92610; 93005; 93306; 93970; 94002; 94003; 94640; 97162; 97166; 97530; 97535; 99291; C1750; C1769; C1887; J0690; J0692; J0885; J1642; J2060; J2150; J2704; J3010; J3370; J3480; J3490; J7060; P9016; G0480

== ENCOUNTER 2023-02-02 23:38 | Inpatient (IN) | payer MEDICAID ==
[~2023-02-02] VITALS: Ht 172.7 cm; Wt 99.8 kg
[~2023-02-02 23:38] MED LIST: ASPI-1160 PO; ATOR20TA PO; COR12 PO; LOSA50TA3 PO
[2023-02-03] VITALS (13 sets, daily range): BP systolic 103–159; BP diastolic 87–113
[2023-02-03 00:19] LABS: BASOPHILS % 1.1 % (0.0-2.0); EOSINOPHILS % 10.2 % (0.0-5.0); HEMATOCRIT. 29.7 % (42.0-52.0); HEMOGLOBIN. 10.1 g/dL (14.0-18.0); LYMPHOCYTES % 22.7 % (20.0-50.0); MEAN CORPUSCULAR HEMOGLOBIN 30.5 pg (28.0-32.0); MEAN CORPUSCULAR VOLUME 89.6 fL (80.0-94.0); MEAN PLATELET VOLUME 8.3 fl (7.4-10.4); MONOCYTES % 10.8 % (2.0-8.0); NEUTROPHILS % 55.2 % (40.0-76.0); PLATELET 212 x1000/uL (130-400); RED BLOOD CELL COUNT 3.31 mill/uL (4.7-6.1); RED CELL DISTRIBUTION WIDTH 17.6 % (11.6-14.6)
[2023-02-03 00:29] LABS: INR 1.3; PROTHROMBIN TIME 14.2 sec (9.6-11.0)
[2023-02-03 00:45] LABS: CHLORIDE 99 mEq/L (98-107)
[2023-02-03] MEDS ORDERED: BACITRACIN ZINC OINT UDPKT TOP ONE (00:45)
[2023-02-03] MEDS ORDERED: LIDOCAINE HCL/EPINEPHRINE 1%-EPI 1:100,000 20 ML VIAL INFIL ONE (00:45)
[2023-02-03] MEDS ORDERED: LOSARTAN POTASSIUM 50 MG TABLET PO ONE (03:15)
[2023-02-03] MEDS ORDERED: MAGNESIUM/ALUMINUM HYDROXIDE/SIMETHICONE 30ML UDC PO PRN (08:15)
[2023-02-03] MEDS ORDERED: ONDANSETRON HCL 4MG/2ML INJ IV PRN (08:15)
[2023-02-03] MEDS ORDERED: IPRATROPIUM/ALBUTEROL 0.5-3(2.5)MG/3ML NEB NEB PRN (08:15)
[2023-02-03] MEDS ORDERED: CLONIDINE 0.1MG TABLET PO PRN (08:15)
[2023-02-03] MEDS ORDERED: ACETAMINOPHEN 325MG TABLET PO PRN ×2 (08:15)
[2023-02-03] MEDS ORDERED: GUAIFENESIN 200MG/10ML SUGAR FREE UDC PO PRN (08:15)
[2023-02-03] MEDS ORDERED: HYDROCODONE/ACETAMINOPHEN 5/325MG TABLET PO PRN (08:15)
[2023-02-03] MEDS ORDERED: NALOXONE HCL 0.4MG/ML VIAL IV PRN (08:30)
[2023-02-03] MEDS: LOSARTAN POTASSIUM 50 MG TABLET PO SCH (09:00)
[2023-02-03] MEDS: CARVEDILOL 12.5MG TABLET PO SCH ×2 (09:00→21:00)
[2023-02-03] MEDS ORDERED: LIDOCAINE HCL/PF 1% 10 MG/ML 5ML VIAL ONE (09:45)
[2023-02-03 14:05] LABS: HEPATITIS B SURFACE ANTIGEN NEGATIVE
[2023-02-03] MEDS: ATORVASTATIN CALCIUM 20MG TABLET PO SCH (21:04)
[2023-02-04] VITALS: BP 155/86
[2023-02-04 04:00] VITALS: BP 150/86
[2023-02-04 07:32] LABS: BASOPHILS % 1.2 % (0.0-2.0); EOSINOPHILS % 9.9 % (0.0-5.0); HEMATOCRIT. 31.8 % (42.0-52.0); HEMOGLOBIN. 11.1 g/dL (14.0-18.0); LYMPHOCYTES % 16.4 % (20.0-50.0); MEAN CORPUSCULAR HEMOGLOBIN 32.4 pg (28.0-32.0); MEAN CORPUSCULAR VOLUME 92.4 fL (80.0-94.0); MEAN PLATELET VOLUME 8.7 fl (7.4-10.4); MONOCYTES % 8.3 % (2.0-8.0); NEUTROPHILS % 64.2 % (40.0-76.0); PLATELET 204 x1000/uL (130-400); RED BLOOD CELL COUNT 3.44 mill/uL (4.7-6.1); RED CELL DISTRIBUTION WIDTH 17.1 % (11.6-14.6)
[2023-02-04 08:00] VITALS: BP 149/99
[2023-02-04] MEDS: CARVEDILOL 12.5MG TABLET PO SCH ×2 (09:12→22:01)
[2023-02-04] MEDS: LOSARTAN POTASSIUM 50 MG TABLET PO SCH (09:12)
[2023-02-04 12:00] VITALS: BP 149/99
[2023-02-04 16:00] VITALS: BP 122/84
[2023-02-04 20:00] VITALS: BP 135/91
[2023-02-04] MEDS: ATORVASTATIN CALCIUM 20MG TABLET PO SCH (22:00)
[2023-02-05] VITALS (15 sets, daily range): BP systolic 109–147; BP diastolic 69–106
[2023-02-05 05:30] LABS: INR 1.3
[2023-02-05 05:44] LABS: BASOPHILS % 1.1 % (0.0-2.0); EOSINOPHILS % 9.9 % (0.0-5.0); HEMATOCRIT. 29.1 % (42.0-52.0); HEMOGLOBIN. 10.3 g/dL (14.0-18.0); LYMPHOCYTES % 23.6 % (20.0-50.0); MEAN CORPUSCULAR HEMOGLOBIN 32.4 pg (28.0-32.0); MEAN CORPUSCULAR VOLUME 91.1 fL (80.0-94.0); MEAN PLATELET VOLUME 9.3 fl (7.4-10.4); MONOCYTES % 9.3 % (2.0-8.0); NEUTROPHILS % 56.1 % (40.0-76.0); PLATELET 187 x1000/uL (130-400); RED BLOOD CELL COUNT 3.19 mill/uL (4.7-6.1)
[2023-02-05] MEDS ORDERED: CEFAZOLIN 1000MG PREMIX 50 ML IV NR (06:45)
[2023-02-05] MEDS ORDERED: LIDOCAINE HCL 1% 10 MG/ML 10ML VIAL ONE ×2 (07:45→07:55)
[2023-02-05] MEDS ORDERED: FENTANYL CITRATE/PF 50MCG/ML 2ML VIAL ONE (08:09)
[2023-02-05] MEDS ORDERED: FENTANYL CITRATE/PF 50MCG/ML 2ML VIAL IV NR (08:30)
[2023-02-05] MEDS ORDERED: ONDANSETRON HCL 4MG/2ML INJ IV NR (09:00)
[2023-02-05] MEDS: LOSARTAN POTASSIUM 50 MG TABLET PO SCH (10:41)
[2023-02-05] MEDS: CARVEDILOL 12.5MG TABLET PO SCH (10:42)
== END 2023-02-05 15:50 | disposition home or self-care (01) | DRG 206 ==
LOC: ER 23:38 → MICUSO 02-03 03:12 → 6EST 02-03 08:15
PROVIDERS: ADMIT Internal Medicine; ATTEND Internal Medicine
PROC: 02H633Z Insertion of Infusion Device into Right Atrium, Percutaneous Approach (ICD-10-PCS; 2023-02-03)
PROC: 5A1D70Z Performance of Urinary Filtration, Intermittent, Less than 6 Hours Per Day (ICD-10-PCS; 2023-02-03)
PROC: B5181ZA Fluoroscopy of Superior Vena Cava using Low Osmolar Contrast, Guidance (ICD-10-PCS; 2023-02-03)
PROC: 02PY33Z Removal of Infusion Device from Great Vessel, Percutaneous Approach (ICD-10-PCS; principal; 2023-02-05)
PROC: 02HV33Z Insertion of Infusion Device into Superior Vena Cava, Percutaneous Approach (ICD-10-PCS; 2023-02-05)
PROC: 0JH63XZ Insertion of Tunneled Vascular Access Device into Chest Subcutaneous Tissue and Fascia, Percutaneous Approach (ICD-10-PCS; 2023-02-05)
PROC: B5181ZA Fluoroscopy of Superior Vena Cava using Low Osmolar Contrast, Guidance (ICD-10-PCS; 2023-02-05)
DX: T82.838A Hemorrhage due to vascular prosthetic devices, implants and grafts, initial encounter (principal); I12.0 Hypertensive chronic kidney disease with stage 5 chronic kidney disease or end stage renal disease; T82.42XA Displacement of vascular dialysis catheter, initial encounter; D63.1 Anemia in chronic kidney disease; N18.6 End stage renal disease; E11.22 Type 2 diabetes mellitus with diabetic chronic kidney disease; E11.51 Type 2 diabetes mellitus with diabetic peripheral angiopathy without gangrene; E87.6 Hypokalemia; Z99.2 Dependence on renal dialysis; Z86.73 Personal history of transient ischemic attack (TIA), and cerebral infarction without residual deficits; Z89.511 Acquired absence of right leg below knee; Y84.1 Kidney dialysis as the cause of abnormal reaction of the patient, or of later complication, without mention of misadventure at the time of the procedure; Y92.89 Other specified places as the place of occurrence of the external cause
CPT/HCPCS: 36415; 36556; 36558; 36589; 71045; 76937; 77001; 80048; 80053; 82962; 83036; 83735; 84100; 85025; 86705; 86709; 86803; 86850; 86900; 87340; 90935; 99152; 99153; 99285; C1725; C1750; C1752; C1769; J0690; J1642; J2405; J3010; J3490; G0500

== ENCOUNTER 2024-02-04 18:51 | Emergency (ER) | payer SELFPAY ==
[~2024-02-04] VITALS: Ht 175.3 cm; Wt 82.0 kg
[~2024-02-04 18:51] MED LIST changes: +LOSA-413 PO; -LOSA50TA3 PO
[2024-02-04 19:01] VITALS: BP 190/127; TEMP 98.2; O2SAT 99
[2024-02-04 19:20] VITALS: PULSE 92; RESP 18
[2024-02-04] MEDS ORDERED: CLIN-194 PO (20:01)
[2024-02-04] MEDS ORDERED: BACI28.432 TP (20:14)
[2024-02-04] MEDS: BACITRACIN ZINC OINT UDPKT TOP ONE (20:16)
== END 2024-02-04 20:27 | disposition home or self-care (01) ==
LOC: ER 18:51
DX: E11.622 Type 2 diabetes mellitus with other skin ulcer (principal); I12.0 Hypertensive chronic kidney disease with stage 5 chronic kidney disease or end stage renal disease; N18.9 Chronic kidney disease, unspecified; Z98.890 Other specified postprocedural states
CPT/HCPCS: 99283